=== PATIENT | female | born 1965 | race African-American/Black ===

== ENCOUNTER 2018-11-12 11:57 | Inpatient (IN) ==
[2018-11-12] MEDS ORDERED: SODIUM CHLORIDE 0.9% 1,000 ML IV STA (13:13)
[2018-11-12 14:04] LABS: Basophils % 0.2 % (0.0-0.8); Eosinophils % 0.1 % (0.00-10.9); Hematocrit 39.1 VOL% (35.7-47.0); Immature Granulocytes % 0.5 %; Immature Granulocytes Absolute 0.04 #; Lymphocytes # 1.8 10*3/uL (1.4-4.0); Lymphocytes % 20.3 % (21.3-54.2); Mean Corpuscular HGB Conc 33.2 GM/DL (32-36); Mean Corpuscular Hemoglobin 31 PG (27-34); Mean Corpuscular Volume 92.4 FL (87-102); Mean Platelet Volume 10.5 FL (9.6-12.0); Monocytes # 1.1 10*3/uL (0.11-0.8); Monocytes % 12.6 % (1.7-12.7); NRBC # 0.03 10*3/uL; Neutrophils # 5.8 10*3/uL (1.4-7.4); Neutrophils % 66.3 % (38.7-73.9); Platelet Count 276 T/CUMM (130-400); Red Blood Count 4.23 MC/CUMM (3.8-5.5); White Blood Count 8.7 T/CUMM (4-12)
[2018-11-12 14:22] LABS: Albumin 4.7 G/DL (3.4-5.0); Amorphous Crystals,Urine Occasional /HPF (Few); Apearance,Urine CLOUDY (Clear); Bacteria,Urine Moderate /HPF (Few); Bilirubin,Total 1.6 MG/DL (0.2-1.0); Bilirubin,Urine Negative (Negative); Blood, Urine Moderate mg/dL (Negative); Calcium 10.6 MG/DL (8.5-10.1); Glucose,Urine (UA) 150 mg/dL (Negative); Ketones,Urine 5 mg/dL (Negative); Mucus,Urine Occasional /LPF (Occasional); Nitrite,Urine Negative (Negative); Potassium 2.9 MMOL/L (3.5-5.1); Protein,Urine >=500 MG/DL; RBC,Urine 13 /HPF (0-4); Total Protein 9.4 G/DL (6.4-8.3); Urine Specific Gravity 1.026 (1.001-1.035); Urine Urobilinogen < 2.0 EU/DL (0.2-1.0); WBC,Urine 48 /HPF (0-6)
[2018-11-12 14:25] LABS: Urine Color Yellow (Yellow)
[2018-11-12] MEDS ORDERED: ACETAMINOPHEN 325 MG TABLET PO PRN (16:01)
[2018-11-12 16:43] LABS: Total Protein 9.4 G/DL (6.4-8.3)
[2018-11-12] MEDS: SODIUM CHLORIDE 0.9% 1,000 ML IV SCH (17:16)
[2018-11-12 17:33] LABS: Hepatitis A Ab IgM Quant 0.17 Index; Hepatitis A Ab IgM Result Negative (Negative); Hepatitis B Core IgM Result Negative (Negative); Hepatitis B Surface Ag Quant < 0.10 Index; Hepatitis B Surface Ag Result Negative (Negative); Hepatitis C Virus Ab Quant 0.06 Index; Hepatitis C Virus Ab Result Negative (Negative)
[2018-11-12] MEDS: POTASSIUM CHLORIDE RIDER 10 MEQ in PREMIX 1 EACH IV SCH ×4 (17:45→21:21)
[2018-11-12 19:52] LABS: INR 1.1; PT Patient Result 12.1 SECS; Partial Thromboplastin Time 28.2 SECS (0-40)
[2018-11-12] MEDS: ENOXAPARIN 30 MG/0.3 ML SYRINGE SUBCUT SCH (20:19)
[2018-11-12] MEDS: ONDANSETRON 4 MG/2 ML VIAL IV PRN (21:09)
[2018-11-12] MEDS: guaiFENesin 200 MG/10 ML UDCUP PO PRN (21:09)
[2018-11-13] MEDS: SODIUM CHLORIDE 0.9% 1,000 ML IV SCH ×2 (02:02→12:23)
[2018-11-13 05:44] LABS: Basophils % 0.3 % (0.0-0.8); Eosinophils % 0.3 % (0.00-10.9); Hematocrit 30.7 VOL% (35.7-47.0); Immature Granulocytes Absolute 0.09 #; Lymphocytes # 1.8 10*3/uL (1.4-4.0); Lymphocytes % 20.6 % (21.3-54.2); Mean Corpuscular HGB Conc 32.9 GM/DL (32-36); Mean Corpuscular Hemoglobin 31 PG (27-34); Mean Platelet Volume 10.6 FL (9.6-12.0); Monocytes # 1.1 10*3/uL (0.11-0.8); Monocytes % 12.3 % (1.7-12.7); Neutrophils # 5.6 10*3/uL (1.4-7.4); Neutrophils % 65.5 % (38.7-73.9); Red Cell Distribution Width 16.1 % (9.3-17.3); White Blood Count 8.6 T/CUMM (4-12)
[2018-11-13 05:46] LABS: Hemoglobin 10.1 GM/DL (12.0-16.0); Platelet Count 195 T/CUMM (130-400)
[2018-11-13 06:01] LABS: Albumin 3.2 G/DL (3.4-5.0); Bilirubin,Total 2.4 MG/DL (0.2-1.0); Calcium 8.8 MG/DL (8.5-10.1); Osmolality,Calculated 283.4 MOS/KG (273-304); Potassium 3.2 MMOL/L (3.5-5.1); Total Protein 6.5 G/DL (6.4-8.3)
[2018-11-13] MEDS: ONDANSETRON 4 MG/2 ML VIAL IV PRN ×2 (09:24→16:11)
[2018-11-13 11:17] LABS: Total Protein (Chem) 9.4 G/DL (6.4-8.3)
[2018-11-13 11:18] LABS: Albumin (SPE) 5.7 G/DL (3.2-5.3); Albumin (SPE) Rel % 60.3 %; Alpha 1 (SPE) 0.2 G/DL (0.1-0.4); Alpha 1 (SPE) Rel % 2.6 %; Alpha 2 (SPE) 0.8 G/DL (0.4-1.0); Alpha 2 (SPE) Rel % 9.3 %; Beta (SPE) 0.8 G/DL (0.5-1.1); Beta (SPE) Rel % 9.3 %; Gamma (SPE) 1.7 G/DL (0.7-1.7); Gamma (SPE) Rel % 18.5 %
[2018-11-13] MEDS: DEXTROSE 5% NACL 0.45% 1,000 ML IV SCH (18:05)
[2018-11-13] MEDS: ENOXAPARIN 30 MG/0.3 ML SYRINGE SUBCUT SCH (21:45)
[2018-11-14] MEDS ORDERED: LISINOPRIL 5 MG TABLET PO ONE (01:46)
[2018-11-14 05:37] LABS: Calcium 8.8 MG/DL (8.5-10.1); Osmolality,Calculated 281.4 MOS/KG (273-304); Potassium 2.8 MMOL/L (3.5-5.1)
[2018-11-14] MEDS ORDERED: hydrALAZINE 20 MG/1 ML VIAL IV PRN (08:23)
[2018-11-14] MEDS: ONDANSETRON 4 MG/2 ML VIAL IV PRN (08:31)
[2018-11-14] MEDS: amLODIPine 5 MG TABLET PO SCH (08:59)
[2018-11-14] MEDS: cefTRIAXone 1,000 MG in SYRINGE 1 EACH IV SCH (08:59)
[2018-11-14] MEDS: ESCITALOPRAM 10 MG TABLET PO SCH (08:59)
[2018-11-14] MEDS: GABAPENTIN 100 MG CAPSULE PO SCH ×3 (08:59→20:37)
[2018-11-14] MEDS: DEXTROSE 5% NACL 0.45% 1,000 ML IV SCH ×2 (09:00→20:43)
[2018-11-14 09:03] LABS: Collection Time,Urine 24 HOURS; Total Protein 24 Hr Ur Result 1687 MG/24HR (0-149.1); Total Volume,Urine 1075 ML (400-2000)
[2018-11-14] MEDS: POTASSIUM CHLORIDE RIDER 10 MEQ in PREMIX 1 EACH IV PRN ×5 (09:04→13:37)
[2018-11-14] MEDS: POLYETHYLENE GLYCOL POWDER 17 GM PACK PO PRN (11:09)
[2018-11-14] MEDS: POTASSIUM CHLORIDE 20 MEQ TABLET PO PRN ×4 (18:02→23:53)
[2018-11-14] MEDS: ENOXAPARIN 30 MG/0.3 ML SYRINGE SUBCUT SCH (20:38)
[2018-11-14] MEDS: guaiFENesin 200 MG/10 ML UDCUP PO PRN (20:45)
[2018-11-15 05:27] LABS: Basophils % 0.2 % (0.0-0.8); Eosinophils # 0.1 10*3/uL (0.0-0.87); Eosinophils % 0.7 % (0.00-10.9); Hematocrit 25.8 VOL% (35.7-47.0); Hemoglobin 8.8 GM/DL (12.0-16.0); Immature Granulocytes % 0.6 %; Immature Granulocytes Absolute 0.07 #; Lymphocytes # 1.6 10*3/uL (1.4-4.0); Lymphocytes % 13.9 % (21.3-54.2); Mean Corpuscular HGB Conc 34.1 GM/DL (32-36); Mean Corpuscular Hemoglobin 30 PG (27-34); Mean Platelet Volume 11.2 FL (9.6-12.0); Monocytes # 1.2 10*3/uL (0.11-0.8); Monocytes % 9.9 % (1.7-12.7); Neutrophils # 8.6 10*3/uL (1.4-7.4); Neutrophils % 74.7 % (38.7-73.9); Platelet Count 173 T/CUMM (130-400); White Blood Count 11.6 T/CUMM (4-12)
[2018-11-15 05:50] LABS: Albumin 2.6 G/DL (3.4-5.0); Bilirubin,Total 1.2 MG/DL (0.2-1.0); Calcium 8.5 MG/DL (8.5-10.1); Osmolality,Calculated 284.8 MOS/KG (273-304); Potassium 3.7 MMOL/L (3.5-5.1); Total Protein 5.8 G/DL (6.4-8.3)
[2018-11-15] MEDS ORDERED: MAGNESIUM SULF RIDER 2 GM in PREMIX 1 EACH IV ONE (07:32)
[2018-11-15] MEDS: ESCITALOPRAM 10 MG TABLET PO SCH (09:10)
[2018-11-15] MEDS: GABAPENTIN 100 MG CAPSULE PO SCH ×3 (09:10→22:08)
[2018-11-15] MEDS: MAGNESIUM OXIDE 400 MG TABLET PO SCH ×2 (09:10→22:08)
[2018-11-15] MEDS: amLODIPine 5 MG TABLET PO SCH (09:10)
[2018-11-15] MEDS: cefTRIAXone 1,000 MG in SYRINGE 1 EACH IV SCH (09:11)
[2018-11-15] MEDS: ONDANSETRON 4 MG/2 ML VIAL IV PRN (12:27)
[2018-11-15] MEDS: DEXTROSE 5% NACL 0.45% 1,000 ML IV SCH (12:28)
[2018-11-15] MEDS: FOLIC ACID 1 MG TABLET PO SCH (12:28)
[2018-11-15] MEDS: ENOXAPARIN 30 MG/0.3 ML SYRINGE SUBCUT SCH (22:07)
[2018-11-15] MEDS: POLYETHYLENE GLYCOL POWDER 17 GM PACK PO PRN (22:15)
[2018-11-16] MEDS: DEXTROSE 5% NACL 0.45% 1,000 ML IV SCH (02:00)
[2018-11-16 05:08] LABS: Basophils % 0.3 % (0.0-0.8); Eosinophils # 0.1 10*3/uL (0.0-0.87); Eosinophils % 0.7 % (0.00-10.9); Hematocrit 25.2 VOL% (35.7-47.0); Hemoglobin 8.7 GM/DL (12.0-16.0); Immature Granulocytes % 1.3 %; Immature Granulocytes Absolute 0.14 #; Lymphocytes # 1.8 10*3/uL (1.4-4.0); Lymphocytes % 16.5 % (21.3-54.2); Mean Corpuscular HGB Conc 34.5 GM/DL (32-36); Mean Corpuscular Hemoglobin 30 PG (27-34); Mean Corpuscular Volume 87.5 FL (87-102); Mean Platelet Volume 10.4 FL (9.6-12.0); Monocytes # 1.2 10*3/uL (0.11-0.8); Neutrophils # 7.6 10*3/uL (1.4-7.4); Neutrophils % 70.2 % (38.7-73.9); Platelet Count 187 T/CUMM (130-400); Red Blood Count 2.88 MC/CUMM (3.8-5.5); Red Cell Distribution Width 16.2 % (9.3-17.3); White Blood Count 10.8 T/CUMM (4-12)
[2018-11-16 05:24] LABS: Calcium 8.2 MG/DL (8.5-10.1); Osmolality,Calculated 279.1 MOS/KG (273-304); Potassium 2.8 MMOL/L (3.5-5.1)
[2018-11-16] MEDS ORDERED: POTASSIUM CHLORIDE INJ 20 MEQ in LACTATED RINGERS 1,000 ML IV SCH (08:30)
[2018-11-16 08:51] LABS: 24 Hr Protein (Bench) 1687 MG/24HR (0-149.1)
[2018-11-16] MEDS: POTASSIUM CHLORIDE RIDER 10 MEQ in PREMIX 1 EACH IV PRN ×4 (08:58→13:31)
[2018-11-16] MEDS: cefTRIAXone 1,000 MG in SYRINGE 1 EACH IV SCH (09:00)
[2018-11-16] MEDS ORDERED: CIPROFLOXACIN 500 MG TABLET PO SCH (09:00)
[2018-11-16] MEDS ORDERED: POTASSIUM CHLORIDE 10 MEQ TABLET PO SCH (09:00)
[2018-11-16] MEDS: FOLIC ACID 1 MG TABLET PO SCH (09:01)
[2018-11-16] MEDS: GABAPENTIN 100 MG CAPSULE PO SCH ×2 (09:01→16:52)
[2018-11-16] MEDS: ESCITALOPRAM 10 MG TABLET PO SCH (09:01)
[2018-11-16] MEDS: MAGNESIUM OXIDE 400 MG TABLET PO SCH (09:01)
[2018-11-16] MEDS: amLODIPine 5 MG TABLET PO SCH (09:01)
[2018-11-16] MEDS: ONDANSETRON 4 MG/2 ML VIAL IV PRN ×2 (12:22→16:52)
[2018-11-16 16:11] VITALS: BP 105/62
[2018-11-16] MEDS: guaiFENesin 200 MG/10 ML UDCUP PO PRN (16:52)
== END 2018-11-16 18:28 | disposition home or self-care (01) | DRG 683 ==
LOC: N.ED 11:57 → SUATTDRO 16:01 → N.EDINP 16:01 → N.2E 16:55
PROVIDERS: ADMIT Internal Medicine; ATTEND Emergency Medicine